=== PATIENT | female | born 1960 | race Two or more races ===

== ENCOUNTER 2021-06-02 18:35 | Emergency (ER) | payer OTHER, SELFPAY ==
[2021-06-02 19:30] VITALS: BP 174/84; PULSE 71; RESP 16; TEMP 36.7; O2SAT 95; BMI 45.2
[2021-06-02 22:22] LABS: MANUAL DIFF FLAG NO
[2021-06-02 22:26] LABS: Basophils Percent Auto 0.2 % (0-2); Eosinophils Absolute Auto 0.1 X10*3/uL (0.0-0.4); Eosinophils Percent Auto 1.2 % (0-4); Hematocrit 32.6 % (37.0-47.0); Hemoglobin 9.5 g/dl (12.0-16.0); Imm Gran Abs Auto 0.03 X10*3/uL (0.00-0.03); Imm Gran Pct Auto 0.5 % (0.0-0.4); Lymphocytes Absolute Auto 1.9 X10*3/uL (1.2-4.9); Lymphocytes Percent Auto 32.3 % (20-40); Mean Corpuscular HGB Conc 29.1 g/dl (31.0-35.0); Mean Corpuscular Hemoglobin 22.3 pg (27.0-33.0); Mean Corpuscular Volume 76.5 fL (80.0-98.0); Mean Platelet Volume 10.4 fL (9.4-12.3); Monocytes Absolute Auto 0.4 X10*3/uL (0.1-1.2); Monocytes Percent Auto 6.8 % (2-11); Neutrophils Absolute Auto 3.5 x10*3/uL (2.0-8.3); Platelet Count 264 X10*3/uL (160-400); Red Blood Count 4.26 X10*6/uL (4.20-5.50); Red Cell Distribution Width 17.8 % (11.0-16.0); White Blood Count 5.9 X10*3/uL (4.8-10.8)
[2021-06-02 22:42] LABS: Alanine Aminotransferase 13 U/L (0-31); Albumin Level 3.4 g/dL (3.5-5.0); Alkaline Phosphatase 85 U/L (39-117); Anion Gap 12 (12-20); Aspartate Amino Transferase 14 U/L (5-31); Bilirubin Total 0.2 mg/dL (0.0-1.0); Blood Urea Nitrogen 12 mg/dL (9-16); Calcium 9.1 mg/dL (8.4-10.2); Carbon Dioxide 26 mmol/L (22-29); Chloride 106 mmol/L (96-108); Estimated Glomerular Filt Rate > 60; Glucose Random 112 mg/dL (60-115); Potassium 4.1 mmol/L (3.3-5.1); Sodium 140 mmol/L (135-145); Total Protein 6.7 g/dL (6.5-8.0)
[2021-06-03 01:18] VITALS: BP 169/84; PULSE 76; RESP 18; O2SAT 96
--- NOTE | 2021-06-03 03:31 | ED.GENADULT ---
HPI - General Adult General Chief complaint: General Medical Stated complaint: pains all over Time Seen by Provider: 06/03/21 03:28 Source: patient Mode of arrival: ambulatory Limitations: other (vague historian, won't give information) History of Present Illness HPI narrative: very vague and guarded - won't say who prescribed the antibiotics but on it for leg ulcers initially won't show us the leg ulcers. states she asked the pharmacist if levofloxacin could cause body aches they instructed her to get checked out. She states she is here to visit someone and is not from the area. She does not have a PCP. She manages her own leg wounds at a local pharmacy. I told her she was anemic but she will not discuss it further. She will not discuss her personal situation. She is alert and oriented. Not suicidal she is calm and cooperative. She is having an appropriate conversation. MD complaint: body pains after taking a few doses of levofloxacin Onset (ago): day(s) (2) Location: abdomen, left, right and upper extremity Radiation: non-radiation Severity: mild and moderate Quality: aching Pain Consistency: intermittent Relieving factors: none Exacerbating factors: none Associated symptoms: denies other symptoms Treatments prior to arrival: none Related Data Allergies Allergy/AdvReac Type Severity Reaction Status Date / Time aspirin [ASA] Allergy Unknown Verified 06/02/21 19:29 ceftriaxone [From Rocephin] Allergy Unknown Verified 06/02/21 19:29 cephalexin [From Keflex] Allergy Unknown Verified 06/02/21 19:29 doxycycline Allergy Unknown Verified 06/02/21 19:29 levothyroxine Allergy Unknown Verified 06/02/21 19:29 Penicillins Allergy Unknown Verified 06/02/21 19:29 Sulfa (Sulfonamide Allergy Unknown Verified 06/02/21 19:29 Antibiotics) sulfur [From Sulfur-8] Allergy Unknown Verified 06/02/21 19:29 vancomycin Allergy Unknown Verified 06/02/21 19:29 Review of Systems Review of Systems: Constitutional : No Weight loss, No Fever, No Chills, No Fatigue, No Malaise ENT/Mouth : No sore throat, No Rhinorrhea Eyes: No Eye Pain, No Swelling, No Redness Cardiovascular : No Chest Pain, No SOB, No Dyspnea on Exertion, No Orthopnea, No Edema, No Palpitations Respiratory : No Cough, No Sputum, No Wheezing Gastrointestinal : No Nausea, No Vomiting, No Diarrhea, No Constipation, pos abdominal Pain, No Hematochezia, No Melena Genitourinary : No Dysuria, No Urinary Frequency, No Hematuria, Musculoskeletal : No joint pain, pos Myalgias, No Joint Swelling Skin : pos Skin Lesions, pos rash Neuro : No Weakness, No Numbness, No Dizziness, No Headache Psych : No Anxiety/Panic, No Depression Heme/Lymph: No Bruising, No Bleeding,No Lymphadenopathy Endocrine : No Polyuria, No Polydipsia All other systems reviewed and are negative [facility] Past Medical History Attestation statement: The following information was validated with the patient. Medical History Arthritis PVD (peripheral vascular disease) Ulcers of both lower extremities Social History Social History (Updated 06/03/21 @ 04:09 by Pratima Francis DO) Patient Tobacco Use Status: Tobacco use Unknown Advance Directives: No Patient : No Physical Exam Vital Signs: Vital Signs: Last Vital Signs Temp 98.0 F 06/02/21 19:30 Pulse 70 06/03/21 04:00 Resp 16 06/03/21 04:00 BP 158/73 H 06/03/21 04:00 Pulse Ox 98 06/03/21 04:00 BMI result Body Mass Index 45.2 Appearance: Alert. Oriented X3. No acute distress. Very guarded Eyes: Pupils equal, round and reactive to light. ENT: Pharynx normal. Neck: Normal inspection. Neck supple. CVS: Normal heart rate and rhythm. Pulses normal. Respiratory: No respiratory distress. Breath sounds normal. Abdomen: Soft and non-tender. Skin: Skin warm and dry. Normal skin color. Normal skin turgor. Extremities: 2-3+ lower ext edema legs are shiny and red but no hot to touch, bilateral lateral lower legs deep ulcers large 6+ cm with clean margins and edges, no purulences, no bleeding, clean appearing Neuro: Oriented X 3. No motor deficit. No sensory deficit. Medical Decision Making MDM Narrative Medical decision making narrative: 60 yo female with what I can tell she has arthritis, PVD, chronic LE ulcer that are deep but look relatively well considering her co-morbidities they are clean in appearance. Offered labs, xrays, wound care consult, rehab, change in antibiotics - she is alert and oriented, calm and cooperative. She refuses admission and further workup in the ED including for her anemia. The RN and I spent a significant amount of time with her attempting to get her to stay but she will not. At this timew ill give the number to the wound care center. Lab Data Result diagrams: 06/02/21 21:59 06/02/21 21:59 Labs: Lab Results 06/02/21 06/02/21 Range/Units 21:59 21:59 WBC 5.9 (4.8-10.8) X10*3/uL RBC 4.26 (4.20-5.50) X10*6/uL Hgb 9.5 L (12.0-16.0) g/dl Hct 32.6 L (37.0-47.0) % MCV 76.5 L (80.0-98.0) fL MCH 22.3 L (27.0-33.0) pg MCHC 29.1 L (31.0-35.0) g/dl RDW 17.8 H (11.0-16.0) % Plt Count 264 (160-400) X10*3/uL MPV 10.4 (9.4-12.3) fL Immature Gran % (Auto) 0.5 H (0.0-0.4) % Neut % (Auto) 59.0 (45-73) % Lymph % (Auto) 32.3 (20-40) % [place] % (Auto) 6.8 (2-11) % Eos % (Auto) 1.2 (0-4) % Baso % (Auto) 0.2 (0-2) % Lymph # (Auto) 1.9 (1.2-4.9) X10*3/uL [place] # (Auto) 0.4 (0.1-1.2) X10*3/uL Eos # (Auto) 0.1 (0.0-0.4) X10*3/uL Baso # (Auto) 0.0 (0.0-0.2) X10*3/uL Abs Immat Gran (auto) 0.03 (0.00-0.03) X10*3/uL Absolute Neuts (auto) 3.5 (2.0-8.3) x10*3/uL Absolute Nucleated RBC 0.000 (0.0-0.012) X10*3/uL Nucleated RBC % (auto) 0.0 (0.0-0.2) /100WBC Sodium 140 (135-145) mmol/L Potassium 4.1 (3.3-5.1) mmol/L Chloride 106 (96-108) mmol/L Carbon Dioxide 26 (22-29) mmol/L Anion Gap 12 (12-20) BUN 12 (9-16) mg/dL Creatinine 0.64 (0.5-1.4) mg/dL Estim Creat Clear Calc 126.0 Estimated GFR > 60 Random Glucose 112 (60-115) mg/dL Calcium 9.1 (8.4-10.2) mg/dL Total Bilirubin 0.2 (0.0-1.0) mg/dL AST 14 (5-31) U/L ALT 13 (0-31) U/L Alkaline Phosphatase 85 (39-117) U/L Total Protein 6.7 (6.5-8.0) g/dL Albumin 3.4 L (3.5-5.0) g/dL Discharge Plan Discharge Clinical Impression: Antibiotic-induced myalgia Bilateral leg ulcer Qualifiers: Non-pressure ulcer stage: with fat layer exposed Qualified Code(s): L97.912 - Non-pressure chronic ulcer of unspecified part of right lower leg with fat layer exposed Anemia Qualifiers: Anemia type: unspecified type Qualified Code(s): D64.9 - Anemia, unspecified Patient Disposition: Home, Self-Care Instructions: Chronic Wounds (ED), Anemia (ED), Musculoskeletal Pain (ED) Additional Instructions: return to ED for any worsening symptoms or concerns you are welcome to come back at any time, you were offered further workup including labs and imaging studies as well as wound management and consults Referrals: Ingrid Good MD [Physician] - 2 days
[2021-06-03 04:00] VITALS: BP 158/73; PULSE 70; RESP 16; O2SAT 98
--- NOTE | 2021-06-03 04:19 | PC.NURSE ---
Pt has had a hard time with being in the hospital, pt wanted her general body pain addressed and is refusing to get undressed to her skin issues can be assessed, iv, and labs to be drawn. pt has been explained the risks and benefits of receiving or not receiving care for her hammad unstagable mulit thickness ankle wounds. pt is unkept, alert and oriented. pt has multiple bags with bread and food in them, pt was asked what her living situation and pt is not willing to discuss her private life with the doctor or myself. pt has as she states it a pressing issues then will come back for care . Pt is having diffuculty making a descision as to stay for treatment or not. with time and education to the state of her wounds and possable infection pt has desided to leave and come back later. dr engel is aware of this. pt is alert and orientedx4.
--- NOTE | 2021-06-03 06:24 | PC.NURSE ---
security called due to the pt has been throwing up road blocks to every step of the way, pt would not touch anything that another person has touched. pt took over one hour to put her shoes on. pt was given food beverages to eat before leaving. multiple attempts to let the pt express her needs. with security pt was wheelchaired to the lobby to make a call for a ride home.
== END 2021-06-03 06:20 | disposition home or self-care (01) ==
PROVIDERS: Emergency Provider Emergency Medicine
DX: L97.912 Non-pressure chronic ulcer of unspecified part of right lower leg with fat layer exposed (principal); D64.9 Anemia, unspecified; T36.8X5A Adverse effect of other systemic antibiotics, initial encounter; M79.18 Myalgia, other site; Y92.9 Unspecified place or not applicable; R60.0 Localized edema
CPT/HCPCS: 36415; 80053; 85025; 99283; 99284

== ENCOUNTER 2021-06-04 16:40 | Emergency (ER) | payer OTHER, SELFPAY ==
--- NOTE | ~2021-06-04 | XR_ITS ---
EXAMINATION: PORTABLE CHEST 1 VIEW CLINICAL INFORMATION: cp . COMPARISON: No recent pertinent prior studies are available for comparison. TECHNIQUE: Portable frontal view of the chest was obtained. FINDINGS: The lungs are well expanded. Patchy bilateral airspace disease seen with persistent peribronchial cuffing. No significant effusion or pneumothorax. No overt edema. Cardiac and mediastinal silhouettes are within normal limits for technique. No acute bony abnormality seen. XR/XR chest 1V IMPRESSION: Bilateral peribronchial cuffing suggesting underlying reactive or small airways disease with ill-defined patchy airspace disease noted. Viral or atypical infectious etiology could have this appearance and should be clinically correlated. No overt edema.
[2021-06-04 17:46] VITALS: BP 180/80; PULSE 80; RESP 16; TEMP 37.2; O2SAT 97; BMI 45.1
--- NOTE | 2021-06-04 19:49 | PC.NURSE ---
CHARGE NURSE CALLED TO BEDSIDE, PT REFUSING TO GET OUT OF WHEELCHAIR ON TO STRETCHER TO BE EXAMINED, PT REFUSING ASSISTANCE FROM STAFF.
--- NOTE | 2021-06-04 19:50 | PC.NURSE ---
This Pct and another Pct tried to get patient into the bed and get changed, pt refused to get out of the wheelchair and refused to get into a magdy . Charge nurse at bedside and pt still refusing to get into the bed and be changed.
--- NOTE | 2021-06-04 20:22 | ECG_ITS ---
Test Reason : CP Blood Pressure : / mmHG Vent. Rate : 071 BPM Atrial Rate : 071 BPM P-R Int : 164 ms QRS Dur : 098 ms QT Int : 394 ms P-R-T Axes : 042 -35 103 degrees QTc Int : 428 ms Normal sinus rhythm with sinus arrhythmia Left axis deviation Left ventricular hypertrophy with repolarization abnormality ( R in aVL , Genaro product , Romhilt-Perkins ) Abnormal ECG No previous ECGs available Referred By: Pranav Mahan Electronically Signed By:Socrates Quintero
--- NOTE | 2021-06-04 21:29 | PC.NURSE ---
This Pct cleaned pts wounds to right foot and left foot with Normal saline. Dressed them with Xeroform and telfa ,abd pad applied with cling per
[2021-06-04 21:43] LABS: MANUAL DIFF FLAG NO
[2021-06-04 21:54] LABS: Basophils Percent Auto 0.3 % (0-2); Eosinophils Absolute Auto 0.1 X10*3/uL (0.0-0.4); Hematocrit 33.5 % (37.0-47.0); Hemoglobin 9.7 g/dl (12.0-16.0); Imm Gran Abs Auto 0.02 X10*3/uL (0.00-0.03); Imm Gran Pct Auto 0.3 % (0.0-0.4); Lymphocytes Absolute Auto 1.8 X10*3/uL (1.2-4.9); Lymphocytes Percent Auto 30.6 % (20-40); Mean Corpuscular Hemoglobin 22.1 pg (27.0-33.0); Mean Corpuscular Volume 76.5 fL (80.0-98.0); Mean Platelet Volume 9.9 fL (9.4-12.3); Monocytes Absolute Auto 0.4 X10*3/uL (0.1-1.2); Monocytes Percent Auto 6.3 % (2-11); Neutrophils Absolute Auto 3.6 x10*3/uL (2.0-8.3); Neutrophils Percent Auto 61.5 % (45-73); Platelet Count 253 X10*3/uL (160-400); Red Blood Count 4.38 X10*6/uL (4.20-5.50); Red Cell Distribution Width 18.1 % (11.0-16.0); White Blood Count 5.9 X10*3/uL (4.8-10.8)
[2021-06-04 21:59] VITALS: BP 173/72; PULSE 87; RESP 18; TEMP 36.5; O2SAT 97
[2021-06-04 21:59] LABS: Alanine Aminotransferase 12 U/L (0-31); Albumin Level 3.5 g/dL (3.5-5.0); Alkaline Phosphatase 82 U/L (39-117); Anion Gap 11 (12-20); Aspartate Amino Transferase 12 U/L (5-31); Bilirubin Direct < 0.2 mg/dL (0.0-0.5); Bilirubin Total 0.3 mg/dL (0.0-1.0); Blood Urea Nitrogen 14 mg/dL (9-16); Calcium 9.3 mg/dL (8.4-10.2); Carbon Dioxide 29 mmol/L (22-29); Chloride 104 mmol/L (96-108); Creatinine Clr Calc Pharmacy 122.1; Estimated Glomerular Filt Rate > 60; Glucose Random 102 mg/dL (60-115); Lipase 31 U/L (8-78); Potassium 4.1 mmol/L (3.3-5.1); Sodium 140 mmol/L (135-145)
[2021-06-04 22:07] LABS: COVID-19 Test Negative (Negative)
[2021-06-04 22:08] LABS: Lactic Acid 1.4 mmol/L (0.5-2.0)
[2021-06-04 22:17] LABS: B Type Natriuretic Peptide 13 pg/mL (<100)
[2021-06-04 22:18] LABS: Troponin-I High Sensitivity 5.7 ng/L (<3.5-17.0)
--- NOTE | 2021-06-04 22:54 | ED_ITS ---
HPI - General Adult General Chief complaint: General Medical Stated complaint: chest pain, abd pain Time Seen by Provider: 06/04/21 20:22 Source: patient Mode of arrival: ambulatory Limitations: no limitations History of Present Illness HPI narrative: 60-year-old female came in for evaluation of generalized body ache, chest, abdomen, bilateral for extremities pain. Patient was chronic ulcerative lesion on both legs patient is taking Levaquin for leg infection (patient cannot take most of antibiotic due to allergy). Patient overall a vague historian. Patient was seen in the emergency department 3 days ago in the emergency department refuse recommended workup. Patient was bilateral nonhealing ulcerative lesion on both legs that the patient is taking care of herself patient claimed that she do dressing 1-3 times daily. Patient declined fever or chills. Related Data Allergies Allergy/AdvReac Type Severity Reaction Status Date / Time aspirin [ASA] Allergy Unknown Verified 06/02/21 19:29 ceftriaxone [From Rocephin] Allergy Unknown Verified 06/02/21 19:29 cephalexin [From Keflex] Allergy Unknown Verified 06/02/21 19:29 doxycycline Allergy Unknown Verified 06/02/21 19:29 levothyroxine Allergy Unknown Verified 06/02/21 19:29 Penicillins Allergy Unknown Verified 06/02/21 19:29 Sulfa (Sulfonamide Allergy Unknown Verified 06/02/21 19:29 Antibiotics) sulfur [From Sulfur-8] Allergy Unknown Verified 06/02/21 19:29 vancomycin Allergy Unknown Verified 06/02/21 19:29 Review of Systems Review of Systems: All other systems are reviewed and are negative Constitutional: Reports as per HPI and Reports no additional constitutional complaints Eyes: Reports as per HPI and Reports no additional eye complaints Reports system reviewed and no additional complaints, except as documented Cardiovascular: Reports as per HPI and Reports no additional cardiovascular complaints Respiratory: Reports as per HPI and Reports no additional respiratory complaints Gastrointestinal: Reports as per HPI and Reports no additional gastrointestinal complaints Genitourinary: Reports no additional female genitourinary complaints Musculoskeletal: Reports no additional musculoskeletal complaints Skin/Breast: Reports system reviewed and no additional complaints, except as docu Psychiatric: Reports no additional psychiatric complaints Endocrine: Reports no additional endocrine complaints Hematologic/Lymphatic: Reports no additional hematologic/lymphatic complaints Allergic/Immunologic: Reports no additional allergic/immunologic complaints Reports system reviewed and no additional complaints, except as documented and Reports Abnormal speech present [facility] Past Medical History Medical History Arthritis PVD (peripheral vascular disease) Ulcers of both lower extremities Social History Social History Patient Tobacco Use Status: Tobacco use Unknown Advance Directives: No Advance Directives Information Provided: No Patient : No Physical Exam ED Vital Signs: Vital Signs - 24 hr 06/04/21 17:46 06/04/21 21:59 Temperature 98.9 F 97.7 F Pulse Rate 80 87 Respiratory Rate 16 18 Blood Pressure 180/80 H 173/72 H Pulse Oximetry 97 97 BMI result Body Mass Index 45.1 Vital signs have been reviewed as appeared to be correct. Blood pressure normal. Heart rate normal. Respiration rate normal. Temperature normal. Oxygen saturation normal. Appearance: Alert. Oriented X3. No acute distress. Head: Normal external exam. Normocephalic. Atraumatic. No Raymond signs noted. No raccoon eyes noted Eyes: PERRLA. EOMI. Conjunctiva and sclera normal. Eyelids normal. ENT: TM's Normal. Pharynx normal. Uvula midline. Moist mucous membranes. No trismus noted. No drooling noted. No muffled voice noted. Neck: Normal inspection. Neck supple. FROM. No adenopathy. Thyroid Normal. No meningeal signs. No neck mass noted. CVS: Normal heart rate and rhythm. Heart sound normal. No murmurs noted. Pulses normal throughout. Respiratory: No respiratory distress. Painless inspiration. Breath sounds normal. No wheezes/rales/rhonchi noted. Chest nontender. No accessory muscle usage noted or decreased air movement noted. Abdomen: Soft and nontender. Bowel sounds normal in all 4 quadrants. No distention noted. No organomegaly noted. No visible injury noted. Back: No CVA tenderness. Full range of motion noted. Skin: Skin warm and dry. Normal skin color. Normal skin turgor. No rashes/lesions/lacerations noted. Extremities: lower extremity edema+2 bilaterally, 10 x 6 cm ulcerative lesion on the lateral aspect of left ankle was greenish discharge and granulation tissue, similar ulcerative lesion 9 x 5 cm on the lateral aspect of right ankle. Neuro: Oriented X 3. Cranial nerve exam: II-XII are grossly intact No motor deficit. No sensory deficit. Reflexes normal. Skin Other: Course Reevaluation(s) Reevaluation #1: Patient was observed in the emergency department using her phone taking pictures/videos and recording her conversation with the staff which is felt to be HIPAA violation, and preaching confidentiality of other patients. security personal were involved trying to check the patient phone, the fall was confiscated by the security personal. Now is refusing admission and refusing IV antibiotic. Patient will be signing against medical advise patient was instructed to follow with the wound clinic. And welcome to return to our hospital if need to. Time: 23:42 Medical Decision Making Lab Data Result diagrams: 06/04/21 21:37 06/04/21 21:37 Labs: Lab Results 06/04/21 06/04/21 06/04/21 Range/Units 21:37 21:37 21:37 WBC 5.9 (4.8-10.8) X10*3/uL RBC 4.38 (4.20-5.50) X10*6/uL Hgb 9.7 L (12.0-16.0) g/dl Hct 33.5 L (37.0-47.0) % MCV 76.5 L (80.0-98.0) fL MCH 22.1 L (27.0-33.0) pg MCHC 29.0 L (31.0-35.0) g/dl RDW 18.1 H (11.0-16.0) % Plt Count 253 (160-400) X10*3/uL MPV 9.9 (9.4-12.3) fL Immature Gran % (Auto) 0.3 (0.0-0.4) % Neut % (Auto) 61.5 (45-73) % Lymph % (Auto) 30.6 (20-40) % [place] % (Auto) 6.3 (2-11) % Eos % (Auto) 1.0 (0-4) % Baso % (Auto) 0.3 (0-2) % Lymph # (Auto) 1.8 (1.2-4.9) X10*3/uL [place] # (Auto) 0.4 (0.1-1.2) X10*3/uL Eos # (Auto) 0.1 (0.0-0.4) X10*3/uL Baso # (Auto) 0.0 (0.0-0.2) X10*3/uL Abs Immat Gran (auto) 0.02 (0.00-0.03) X10*3/uL Absolute Neuts (auto) 3.6 (2.0-8.3) x10*3/uL Absolute Nucleated RBC 0.000 (0.0-0.012) X10*3/uL Nucleated RBC % (auto) 0.0 (0.0-0.2) /100WBC Sodium 140 (135-145) mmol/L Potassium 4.1 (3.3-5.1) mmol/L Chloride 104 (96-108) mmol/L Carbon Dioxide 29 (22-29) mmol/L Anion Gap 11 L (12-20) BUN 14 (9-16) mg/dL Creatinine 0.66 (0.5-1.4) mg/dL Estim Creat Clear Calc 122.1 Estimated GFR > 60 Random Glucose 102 (60-115) mg/dL Lactic Acid (0.5-2.0) mmol/L Calcium 9.3 (8.4-10.2) mg/dL Total Bilirubin 0.3 (0.0-1.0) mg/dL Direct Bilirubin < 0.2 (0.0-0.5) mg/dL AST 12 (5-31) U/L ALT 12 (0-31) U/L Alkaline Phosphatase 82 (39-117) U/L Troponin I High Sens 5.7 (<3.5-17.0) ng/L B-Natriuretic Peptide (<100) pg/mL Total Protein 7.0 (6.5-8.0) g/dL Albumin 3.5 (3.5-5.0) g/dL Lipase 31 (8-78) U/L COVID-19 (ROBIN) (Negative) COVID-19 Clin Com 06/04/21 06/04/21 06/04/21 Range/Units 21:37 21:37 21:51 WBC (4.8-10.8) X10*3/uL RBC (4.20-5.50) X10*6/uL Hgb (12.0-16.0) g/dl Hct (37.0-47.0) % MCV (80.0-98.0) fL MCH (27.0-33.0) pg MCHC (31.0-35.0) g/dl RDW (11.0-16.0) % Plt Count (160-400) X10*3/uL MPV (9.4-12.3) fL Immature Gran % (Auto) (0.0-0.4) % Neut % (Auto) (45-73) % Lymph % (Auto) (20-40) % [place] % (Auto) (2-11) % Eos % (Auto) (0-4) % Baso % (Auto) (0-2) % Lymph # (Auto) (1.2-4.9) X10*3/uL [place] # (Auto) (0.1-1.2) X10*3/uL Eos # (Auto) (0.0-0.4) X10*3/uL Baso # (Auto) (0.0-0.2) X10*3/uL Abs Immat Gran (auto) (0.00-0.03) X10*3/uL Absolute Neuts (auto) (2.0-8.3) x10*3/uL Absolute Nucleated RBC (0.0-0.012) X10*3/uL Nucleated RBC % (auto) (0.0-0.2) /100WBC Sodium (135-145) mmol/L Potassium (3.3-5.1) mmol/L Chloride (96-108) mmol/L Carbon Dioxide (22-29) mmol/L Anion Gap (12-20) BUN (9-16) mg/dL Creatinine (0.5-1.4) mg/dL Estim Creat Clear Calc Estimated GFR Random Glucose (60-115) mg/dL Lactic Acid 1.4 (0.5-2.0) mmol/L Calcium (8.4-10.2) mg/dL Total Bilirubin (0.0-1.0) mg/dL Direct Bilirubin (0.0-0.5) mg/dL AST (5-31) U/L ALT (0-31) U/L Alkaline Phosphatase (39-117) U/L Troponin I High Sens (<3.5-17.0) ng/L B-Natriuretic Peptide 13 (<100) pg/mL Total Protein (6.5-8.0) g/dL Albumin (3.5-5.0) g/dL Lipase (8-78) U/L COVID-19 (ROBIN) Negative (Negative) COVID-19 Clin Com See Note Discharge Plan Discharge Clinical Impression: Bilateral leg ulcer Patient Disposition: Left Against Medical Advice Instructions: Chronic Wounds (ED) Additional Instructions: Welcome to come back to our hospital if worsening of your symptoms or develop fever chills. Please follow-up with a wound clinic you need a long-term care for your leg ulcers. Referrals: Veronica Sharma MD [Physician] - 2 days
--- NOTE | 2021-06-04 23:05 | PC.NURSE ---
pt now has IV access, pt was a very hard stick. this RN unable to start IV, unable to start US IV, IV successfully placed by Karla KIMBROUGH This RN was about to start abx per MAR but pt requesting Meropenem instead of ordered abx. notified
--- NOTE | 2021-06-04 23:33 | PC.NURSE ---
pt using cell phone to photograph and record staff Charge notified Security called to bedside
== END 2021-06-05 00:01 | disposition left against medical advice (07) ==
PROVIDERS: Emergency Provider Emergency Medicine
DX: L97.322 Non-pressure chronic ulcer of left ankle with fat layer exposed (principal); L97.312 Non-pressure chronic ulcer of right ankle with fat layer exposed; R60.0 Localized edema; Z20.822 Contact with and (suspected) exposure to COVID-19
CPT/HCPCS: 36415; 71045; 80048; 80076; 83605; 83690; 83880; 84484; 85025; 87040; 87635; 93005; 96365; 99284